=== PATIENT | male | born 1950 | race Caucasian/White ===

== ENCOUNTER 2018-10-13 09:28 | Outpatient (CLI) | payer MEDICARE ==
--- NOTE | 2018-10-13 11:36 | RAD ---
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 COMPARISON: None. CORRELATION: Abdomen and pelvis CT from 09/05/2017. FINDINGS: There is redemonstration of a well circumscribed mass in the left hemidiaphragm, which has peripheral calcifications. The mass is similar to the previous CT. The remainder of the left lung is unremark able. Adequate aeration of the right lung. The lungs are hyperinflated. Normal cardiac silhouette. IMPRESSION: Redemonstration of mass in the left lung base. POS: ANNALISE
== END 2018-10-13 09:29 | disposition home or self-care (01) ==
LOC: RAD 09:28
PROVIDERS: ATTEND Thoracic Surgery (Cardiothoracic Vascular Surgery)
DX: I31.8 Other specified diseases of pericardium (principal); R91.8 Other nonspecific abnormal finding of lung field
CPT/HCPCS: 71046

== ENCOUNTER 2021-01-22 13:15 | Outpatient (CLI) | payer MEDICARE ==
[2021-01-22] MEDS ORDERED: Iopamidol-370 76% 500 ML 1 ML ONE (15:05)
--- NOTE | 2021-01-22 15:12 | CT ---
EXAM: CT chest, abdomen, and pelvis with IV contrast CT abdomen and pelvis without IV contrast HISTORY: Elevated PSA, lung nodule. COMPARISON: CT abdomen and pelvis on 09/05/2017 FINDINGS: CT THORAX: Lungs: Peripherally calcified slightly hyperdense cystic mass inferior left hemithorax is again seen and unchanged in size or appearance compared to study in 2017 measuring 6.9 cm craniocaudal x10 cm AP x7.3 cm transverse. A 5 mm pulmonary nodule is seen in the left lower lobe adjacent to the upper portion of the cystic ma ss. This pulmonary nodule was also present on prior exam. No additional pulmonary nodule, mass, or consolidation is seen. Pleura: No pleural effusion. Lymph nodes: No enlarged lymph nodes are seen by CT size criteria. Mediastinum: Vascular calcifications are seen in the thoracic aorta. Chest wall: No abnormalities CT ABDOMEN AND PELVIS: Liver: Within normal limits. Gallbladder: Within normal limits. \ Pancreas: Within normal limits. Spleen: Within normal limits. Adrenal glands: Within normal limits. Kidneys: There is a stable nonobstructing calculus midportion left kidney. A cortically based calcifi cation junction midportion and superior pole right kidney is again seen with overlying area of mild scarring. Right renal cysts are again seen with subcentimeter too small to characterize hypodense les ions in the left kidney. No ureteral calculus is appreciated, and there is no hydronephrosis. Urinary Bladder: The urinary bladder is unremarkable. Reproductive organs: Within normal limits for patient's age. Bowel: Normal in caliber. Adenopathy:No lymphadenopathy within the abdomen or pelvis. Peritoneum: No free fluid or fluid collection is seen. No free intraperitoneal gas is identified. Abdominal wall: Tiny fat-containing periumbilical hernia. Osseous structures: No suspicious lytic or sclerotic osseous lesions are identified. Right convex cur vature of thoracolumbar spine is present with scattered degenerative changes in the spine greatest involving the lower lumbar spine. IMPRESSION: 1. Stable partially calcified slightly hypodense cystic mass left lung base with differential conside rations unchanged. Given stability of this finding compared to study in 2017 suggests nonaggressive lesion. 2. Nonobstructing left renal calculus. No ureteral calculus is seen. 3. Right renal cyst with subcentimeter too small to characterize hypodense lesions left kidney. 4. No suspicious lytic or sclerotic osseous lesions are identified. 5. Stable 5 mm left lower lobe pulmonary nodule.
== END 2021-01-22 13:16 | disposition home or self-care (01) ==
LOC: BICCT 13:15
PROVIDERS: ATTEND Urology
DX: N20.0 Calculus of kidney (principal); M54.5 Low back pain; R91.1 Solitary pulmonary nodule; Z87.898 Personal history of other specified conditions; Z98.890 Other specified postprocedural states; Z87.448 Personal history of other diseases of urinary system; R91.8 Other nonspecific abnormal finding of lung field; N28.89 Other specified disorders of kidney and ureter
CPT/HCPCS: 71260; 74178; 82565; Q9967

== ENCOUNTER 2021-05-01 14:22 | Outpatient (CLI) | payer MEDICARE | END 2021-05-01 14:23 | disposition home or self-care (01) | LOC: TBSIIMAG 14:22 | PROVIDERS: ATTEND Urology | DX: C61 Malignant neoplasm of prostate (principal); Z98.890 Other specified postprocedural states | CPT/HCPCS: 72197 ==

== ENCOUNTER 2021-06-13 06:01 | Day surgery (SDC) | payer MEDICARE ==
[2021-06-12 10:06] VITALS: BMI 20.5
== END 2021-06-13 09:13 | disposition home or self-care (01) ==
LOC: SDC 06:01
PROVIDERS: ATTEND Urology
PROC: 0VB03ZX Excision of Prostate, Percutaneous Approach, Diagnostic (ICD-10-PCS; principal; 2021-06-13)
DX: N42.31 Prostatic intraepithelial neoplasia (principal); N40.1 Benign prostatic hyperplasia with lower urinary tract symptoms; R35.0 Frequency of micturition; N52.9 Male erectile dysfunction, unspecified; N20.0 Calculus of kidney; R91.1 Solitary pulmonary nodule; R31.29 Other microscopic hematuria; Z88.5 Allergy status to narcotic agent; Z79.82 Long term (current) use of aspirin; Z79.899 Other long term (current) drug therapy; Z98.890 Other specified postprocedural states
CPT/HCPCS: 88305; 88341; 88342; J0696; J1956; J2704; J3010; J3490

== ENCOUNTER 2021-08-13 07:35 | Outpatient (CLI) | payer MEDICARE ==
[2021-08-13 09:43] LABS: Bilirubin Neg (Negative); Blood, Urine Negative (Negative); Clarity Clear (Clear); Glucose, Urine (Dipstick) Normal (Negative); Ketone, Urine 5 mg/dL (Negative); Leukocyte Negative (Negative); Nitrite Negative (Negative); Protein, Urine (Dipstick) 15 mg/dl (Neg-Trace); Specific Gravity, Urine 1.025 (1.002-1.036); Urobilinogen Normal mg/dL (Less than 2)
[2021-08-13 09:44] LABS: Hemoglobin 15.6 g/dL (13.5-17.5); Mean Corpuscular HGB CONC 33.3 g/dL (32.0-36.0); Mean Platelet Volume 10.3 fl (7.4-10.4); Platelet Count 200 10x3/uL (150-450); RBC Distribution Width 13.8 % (11.5-14.5); Red Blood Cell (RBC) Count 5.03 10x6/uL (4.32-5.72); White Blood Cell (WBC) Count 4.9 10x3/uL (3.5-10.5)
[2021-08-13 10:03] LABS: PTT 26.9 sec (22.0-33.0); Prothrombin Time 10.9 sec (9.5-12.1)
[2021-08-13 10:33] LABS: RBC/HPF 0-3 HPF (0-3); WBC/HPF 0-3 HPF (0-3)
[2021-08-13 10:34] LABS: Bacteria/HPF None Seen HPF (None Seen); Calcium Oxalate Crystals 1+ HPF (None Seen); Mucous/LPF 1+ LPF (<2+); Squamous Epithelial 0-3 HPF (0-3)
[2021-08-13 10:36] LABS: Anion Gap 13 mmol/L (10-20); BUN (Urea Nitrogen) 26 mg/dL (8.4-25.7); Calc. Creatinine Clearance 0 mL/min (70-130); Calcium 9.4 mg/dL (7.8-10.44); Carbon Dioxide 26 mmol/L (23-31); Chloride 106 mmol/L (98-107); Glucose 94 mg/dL (83-110); Potassium 4.6 mmol/L (3.5-5.1); Sodium 140 mmol/L (136-145)
[2021-08-13 22:32] LABS: SARS-CoV-2 PCR by NAA Not Detected (NotDetected)
== END 2021-08-13 07:36 | disposition home or self-care (01) ==
LOC: LABBT 07:35
PROVIDERS: ATTEND Urology
DX: Z01.818 Encounter for other preprocedural examination (principal); C61 Malignant neoplasm of prostate; N40.1 Benign prostatic hyperplasia with lower urinary tract symptoms; R35.0 Frequency of micturition; N52.9 Male erectile dysfunction, unspecified; N20.0 Calculus of kidney; N42.32 Atypical small acinar proliferation of prostate; R91.1 Solitary pulmonary nodule; R89.8 Other abnormal findings in specimens from other organs, systems and tissues; Z87.448 Personal history of other diseases of urinary system; Z98.890 Other specified postprocedural states; Z87.898 Personal history of other specified conditions; Z20.822 Contact with and (suspected) exposure to COVID-19
CPT/HCPCS: 80048; 81001; 85027; 85610; 85730; 87086; U0003; U0005

== ENCOUNTER 2021-08-15 06:20 | Day surgery (SDC) | payer MEDICARE ==
[2021-08-14 11:16] VITALS: BMI 19.8
[2021-08-15] MEDS ORDERED: Fentanyl 100 MCG/2 ML VIAL ONE (06:44)
[2021-08-15] MEDS ORDERED: ePHEDrine 50 MG/ML VIAL ONE (07:40)
[2021-08-15] MEDS ORDERED: Ondansetron PF 4 MG/2 ML Vial ONE (07:40)
[2021-08-15] MEDS ORDERED: Dexamethasone 20 MG/5 ML VIAL ONE (07:40)
[2021-08-15] MEDS ORDERED: Phenazopyridine HCl 100 MG TAB ONE (09:46)
== END 2021-08-15 10:50 | disposition home or self-care (01) ==
LOC: SDC 06:20
PROVIDERS: ATTEND Urology
PROC: 0T7D8DZ Dilation of Urethra with Intraluminal Device, Via Natural or Artificial Opening Endoscopic (ICD-10-PCS; principal; 2021-08-15)
PROC: 0TBB8ZX Excision of Bladder, Via Natural or Artificial Opening Endoscopic, Diagnostic (ICD-10-PCS; 2021-08-15)
DX: N40.1 Benign prostatic hyperplasia with lower urinary tract symptoms (principal); C67.9 Malignant neoplasm of bladder, unspecified; C61 Malignant neoplasm of prostate; R35.0 Frequency of micturition; N52.9 Male erectile dysfunction, unspecified; N20.0 Calculus of kidney; N42.32 Atypical small acinar proliferation of prostate; Z79.82 Long term (current) use of aspirin; Z79.899 Other long term (current) drug therapy; Z88.5 Allergy status to narcotic agent
CPT/HCPCS: 52234; 93005; C9740; 88305; 93010; J1100; J2405; J3010; J3490; L8699

== ENCOUNTER 2022-07-19 09:26 | Outpatient (CLI) | payer MEDICARE ==
[2022-07-19 10:58] LABS: Hemoglobin 14.6 g/dL (13.5-17.5); Mean Corpuscular HGB CONC 33.6 g/dL (32.0-36.0); Mean Corpuscular Hemoglobin 30.9 pg (27.0-33.0); Platelet Count 210 10x3/uL (150-450); RBC Distribution Width 14.5 % (11.5-14.5); Red Blood Cell (RBC) Count 4.73 10x6/uL (4.32-5.72); White Blood Cell (WBC) Count 4.4 10x3/uL (3.5-10.5)
[2022-07-19 11:07] LABS: PTT 27.3 sec (22.0-33.0); Prothrombin Time 10.7 sec (9.5-12.1)
[2022-07-19 11:35] LABS: Anion Gap 9 mmol/L (10-20); BUN (Urea Nitrogen) 22 mg/dL (8.4-25.7); Calc. Creatinine Clearance 0 mL/min (70-130); Calcium 9.2 mg/dL (7.8-10.44); Carbon Dioxide 27 mmol/L (23-31); Chloride 106 mmol/L (98-107); Estimated GFR 77; Glucose 73 mg/dL (83-110); Potassium 4.3 mmol/L (3.5-5.1); Sodium 138 mmol/L (136-145)
[2022-07-19 11:49] LABS: Bilirubin Neg (Negative); Blood, Urine Negative (Negative); Clarity Clear (Clear); Glucose, Urine (Dipstick) Normal (Negative); Ketone, Urine Negative (Negative); Leukocyte Negative (Negative); Nitrite Negative (Negative); Protein, Urine (Dipstick) Negative (Neg-Trace); Specific Gravity, Urine 1.025 (1.002-1.036); Urobilinogen Normal mg/dL (Less than 2)
[2022-07-19 11:57] LABS: RBC/HPF None Seen HPF (0-3)
== END 2022-07-19 09:27 | disposition home or self-care (01) ==
LOC: LABBT 09:26
PROVIDERS: ATTEND Urology
DX: Z01.812 Encounter for preprocedural laboratory examination (principal); C61 Malignant neoplasm of prostate; Z12.5 Encounter for screening for malignant neoplasm of prostate; N20.0 Calculus of kidney; N52.9 Male erectile dysfunction, unspecified; N40.1 Benign prostatic hyperplasia with lower urinary tract symptoms; N21.0 Calculus in bladder; N42.32 Atypical small acinar proliferation of prostate; R89.8 Other abnormal findings in specimens from other organs, systems and tissues; R91.1 Solitary pulmonary nodule; R35.0 Frequency of micturition; Z87.898 Personal history of other specified conditions; Z98.890 Other specified postprocedural states; Z87.448 Personal history of other diseases of urinary system
CPT/HCPCS: 80048; 81001; 85027; 85610; 85730; 87086

== ENCOUNTER 2022-07-24 05:32 | Observation (INO) | payer MEDICARE ==
[2022-06-21 14:51] LABS: Hemoglobin 13.3 g/dL (13.5-17.5); Mean Corpuscular HGB CONC 33.8 g/dL (32.0-36.0); Mean Corpuscular Hemoglobin 30.4 pg (27.0-33.0); Mean Corpuscular Volume 90.2 fl (81.2-95.1); Platelet Count 243 10x3/uL (150-450); RBC Distribution Width 13.4 % (11.5-14.5); Red Blood Cell (RBC) Count 4.37 10x6/uL (4.32-5.72); White Blood Cell (WBC) Count 6.2 10x3/uL (3.5-10.5)
[2022-06-21 15:06] LABS: Bilirubin Neg (Negative); Blood, Urine 10 (Negative); Clarity Clear (Clear); Glucose, Urine (Dipstick) Normal (Negative); Ketone, Urine Negative (Negative); Leukocyte 25 (Negative); Nitrite Negative (Negative); Protein, Urine (Dipstick) Negative (Neg-Trace); Specific Gravity, Urine 1.025 (1.002-1.036); Urobilinogen Normal mg/dL (Less than 2)
[2022-06-21 15:17] LABS: Bacteria/HPF Rare-Few HPF (None Seen); Calcium Oxalate Crystals 1+ HPF (None Seen); RBC/HPF 0-3 HPF (0-3); Squamous Epithelial 0-3 HPF (0-3)
[2022-06-21 15:24] LABS: Anion Gap 13 mmol/L (10-20); BUN (Urea Nitrogen) 20 mg/dL (8.4-25.7); Calc. Creatinine Clearance 0 mL/min (70-130); Calcium 9.1 mg/dL (7.8-10.44); Carbon Dioxide 25 mmol/L (23-31); Chloride 108 mmol/L (98-107); Estimated GFR 88; Glucose 133 mg/dL (83-110); Sodium 142 mmol/L (136-145)
[2022-06-21 15:33] LABS: PTT 27.2 sec (22.0-33.0); Prothrombin Time 11.1 sec (9.5-12.1)
[2022-06-24 13:43] VITALS: BMI 20.2
[2022-07-24] MEDS ORDERED: Levofloxacin 500 mg/D5W 100 ml Premix Bag ONE (06:40)
[2022-07-24] MEDS ORDERED: Fentanyl 100 MCG/2 ML VIAL ONE (07:17)
[2022-07-24] MEDS ORDERED: HYDROmorphone 0.5 MG/0.5 ML SYRINGE ONE (07:17)
[2022-07-24] MEDS ORDERED: Lidocaine 1% MPF 2 ML VIAL ONE (07:25)
[2022-07-24] MEDS ORDERED: Dexamethasone 20 MG/5 ML VIAL ONE (07:25)
[2022-07-24] MEDS ORDERED: Ondansetron PF 4 MG/2 ML Vial ONE (07:25)
[2022-07-24] MEDS ORDERED: PROPOFOL 200 MG/20 ML VIAL ONE (07:25)
[2022-07-24] MEDS ORDERED: ePHEDrine 50 MG/ML VIAL ONE (07:25)
[2022-07-24] MEDS ORDERED: diphenhydrAMINE 50 MG/ML VIAL IVP PRN (08:46)
[2022-07-24] MEDS ORDERED: Phenazopyridine HCl 95 MG TAB PO PRN (08:46)
[2022-07-24] MEDS ORDERED: Mag-Al 1200 mg/1200 mg/30 ML UDCUP PO PRN (08:46)
[2022-07-24] MEDS ORDERED: Zolpidem Tartrate 5 MG TAB PO PRN (08:46)
[2022-07-24] MEDS ORDERED: Oxybutynin 5 MG TAB PO PRN (08:46)
[2022-07-24] MEDS ORDERED: hydrALAZINE 20 MG/ML VIAL SLOW IVP PRN (08:46)
[2022-07-24] MEDS ORDERED: Ondansetron PF 4 MG/2 ML Vial IVP PRN (08:46)
[2022-07-24] MEDS ORDERED: Morphine 4 MG/ML VIAL SLOW IVP PRN (08:49)
[2022-07-24] MEDS ORDERED: HYDROcodone/Acetaminophen 5/325 mg Tablet PO PRN ×2 (08:49)
[2022-07-24] MEDS ORDERED: Morphine 2 MG/ML VIAL SLOW IVP PRN (08:49)
[2022-07-24 09:24] LABS: #Eosinphils 0.1 thou/uL (0.0-0.7); #Lymphocytes 0.7 thou/uL (1.20-3.40); #Monocytes 0.2 thou/uL (0.11-0.59); #Neutrophils 6.8 thou/uL (1.40-6.50); %Basophils 0.2 % (0.0-1.0); %Eosinophils 0.8 % (0.0-10.0); %Monocytes 2.6 % (0.0-10.0); %Neutrophils 87.4 % (42.0-75.0); Hemoglobin 14.3 g/dL (14.0-18.0); Mean Corpuscular HGB CONC 32.9 g/dL (32.0-36.0); Mean Corpuscular Hemoglobin 31.6 pg (27.0-31.0); Mean Corpuscular Volume 96.3 fL (78.0-98.0); Mean Platelet Volume 7.3 fL (7.4-10.4); Platelet Count 184 thou/uL (130-400); Red Blood Cell (RBC) Count 4.52 mill/uL (4.70-6.10); White Blood Cell (WBC) Count 7.7 thou/uL (4.8-10.8)
[2022-07-24 09:40] LABS: Anion Gap 13 mmol/L (10-20); BUN (Urea Nitrogen) 15 mg/dL (8.4-25.7); Calc. Creatinine Clearance 68 mL/min (70-130); Calcium 8.6 mg/dL (7.8-10.44); Carbon Dioxide 24 mmol/L (23-31); Chloride 107 mmol/L (98-107); Estimated GFR 90; Glucose 114 mg/dL (83-110); Potassium 4.2 mmol/L (3.5-5.1); Sodium 140 mmol/L (136-145)
[2022-07-24] MEDS: Docusate 100 MG CAP PO SCH ×2 (11:22→20:33)
[2022-07-24] MEDS: Tamsulosin HCl 0.4 MG CAP PO SCH (11:23)
[2022-07-24] MEDS: Famotidine/PF 20 mg/2ml Vial SLOW IVP SCH ×2 (11:23→20:34)
[2022-07-24] MEDS: Sodium Chloride 0.9% 1,000 ML IV SCH ×2 (12:42→20:33)
[2022-07-25 05:59] LABS: #Lymphocytes 1.3 thou/uL (1.20-3.40); #Monocytes 0.6 thou/uL (0.11-0.59); #Neutrophils 5.1 thou/uL (1.40-6.50); %Eosinophils 0.6 % (0.0-10.0); %Lymphocytes 18.8 % (21.0-51.0); %Neutrophils 71.7 % (42.0-75.0); Hemoglobin 13.1 g/dL (14.0-18.0); Mean Corpuscular Hemoglobin 32.5 pg (27.0-31.0); Mean Corpuscular Volume 95.6 fL (78.0-98.0); Mean Platelet Volume 7.5 fL (7.4-10.4); Platelet Count 171 thou/uL (130-400); RBC Distribution Width 13.1 % (11.5-14.5); Red Blood Cell (RBC) Count 4.05 mill/uL (4.70-6.10); White Blood Cell (WBC) Count 7.1 thou/uL (4.8-10.8)
[2022-07-25] MEDS: Sodium Chloride 0.9% 1,000 ML IV SCH (06:03)
[2022-07-25] MEDS ORDERED: cefTRIAXone\\ROCEPHIN 1 GM in Sodium Chloride 0.9% 100 ML IVPB SCH (07:00)
[2022-07-25 07:26] LABS: Anion Gap 14 mmol/L (10-20); BUN (Urea Nitrogen) 14 mg/dL (8.4-25.7); Calc. Creatinine Clearance 82 mL/min (70-130); Calcium 8.3 mg/dL (7.8-10.44); Carbon Dioxide 21 mmol/L (23-31); Chloride 108 mmol/L (98-107); Estimated GFR 96; Glucose 87 mg/dL (83-110); Potassium 3.9 mmol/L (3.5-5.1); Sodium 139 mmol/L (136-145)
[2022-07-25] MEDS: Docusate 100 MG CAP PO SCH (09:01)
[2022-07-25] MEDS: Tamsulosin HCl 0.4 MG CAP PO SCH (09:01)
[2022-07-25] MEDS: Famotidine/PF 20 mg/2ml Vial SLOW IVP SCH (09:02)
[2022-07-25 12:09] VITALS: BP 131/79; TEMP 97.2
[2022-07-30 12:13] LABS: CA Oxalate Dihydrate 80 % (.); CA Oxalate Monohydrate 10 % (.); Color Tan (.); Stone Weight 30 mg (.)
== END 2022-07-25 14:05 | disposition home or self-care (01) ==
LOC: SDC 05:32 → SURG A 10:05
PROVIDERS: ADMIT Urology; ATTEND Urology
PROC: 0VT08ZZ Resection of Prostate, Via Natural or Artificial Opening Endoscopic (ICD-10-PCS; principal; 2022-07-24)
PROC: 0TCB8ZZ Extirpation of Matter from Bladder, Via Natural or Artificial Opening Endoscopic (ICD-10-PCS; 2022-07-24)
DX: N40.0 Benign prostatic hyperplasia without lower urinary tract symptoms (principal); N21.0 Calculus in bladder; C61 Malignant neoplasm of prostate; N20.0 Calculus of kidney; N52.9 Male erectile dysfunction, unspecified; Z23 Encounter for immunization; Z79.899 Other long term (current) drug therapy; Z88.5 Allergy status to narcotic agent; Z98.890 Other specified postprocedural states
CPT/HCPCS: 52317; 52648; 80048 ×3; 81001; 82365; 85025 ×2; 85027; 85610; 85730; 86850 ×2; 86900 ×2; 86901 ×2; 87086; 90732; 96374; 96375 ×2; G0009; G0378 ×2; 36415; 88300; 88305; 90471; J0696; J1100; J1170; J1956; J2270; J2405; J2704; J3010; J3490; J7050; S0028

== ENCOUNTER 2022-10-14 11:17 | Outpatient (CLI) | payer MEDICARE ==
[~2022-10-14 11:17] MED LIST: Magnevist 469MG/ML 20 ML VIAL ONE
== END 2022-10-14 11:18 | disposition home or self-care (01) ==
LOC: TBSIIMAG 11:17
PROVIDERS: ATTEND Urology
DX: C61 Malignant neoplasm of prostate (principal)
CPT/HCPCS: 72197; 82565; A9579

== ENCOUNTER 2023-01-03 09:34 | Outpatient (CLI) | payer MEDICARE | END 2023-01-03 09:35 | disposition home or self-care (01) | LOC: BICCT 09:34 | PROVIDERS: ATTEND Urology | DX: N21.0 Calculus in bladder (principal); N20.0 Calculus of kidney; K42.9 Umbilical hernia without obstruction or gangrene; N28.89 Other specified disorders of kidney and ureter; M47.816 Spondylosis without myelopathy or radiculopathy, lumbar region; M51.36 Other intervertebral disc degeneration, lumbar region | CPT/HCPCS: 74176 ==